=== PATIENT | male | born 1990 ===

== ENCOUNTER 2019-11-14 10:06 | Outpatient (CLI) | payer MEDICAID ==
[~2019-11-14] VITALS: Ht 170.2 cm; Wt 71.2 kg
[2019-11-14 10:34] VITALS: BP 117/69
[2019-11-14] MEDS ORDERED: DESCOVY PO (10:36)
--- NOTE | 2019-11-14 12:00 | Consultation ---
DATE OF CONSULTATION: 11/14/2019 CHIEF COMPLAINT: Diarrhea, abdominal pain, bloating. PAST MEDICAL HISTORY: Abdominal colonic. PAST SURGICAL HISTORY: None. MEDICATIONS: Descovy. FAMILY HISTORY: Father had gallstones. SOCIAL HISTORY: Drinks alcohol occasionally. Denies any tobacco usage. ALLERGIES: No known drug allergies. REVIEW OF SYSTEMS: Positive for abdominal pain, GERD, diarrhea, bloating . PHYSICAL EXAMINATION: VITAL SIGNS: Temperature 97.7, blood pressure 117/69, pulse 86, respirations 20. HEENT: Normocephalic and atraumatic. Sclerae anicteric. NECK: Supple. No evidence of obvious lymphadenopathy. CARDIOVASCULAR: Regular rate and rhythm. Plus S1, S2. LUNGS: Clear to auscultation bilaterally. ABDOMEN: Positive bowel sounds. Soft and nontender. No rebound. No guarding. No peritoneal sign. EXTREMITIES: No cyanosis. No clubbing. No edema. ASSESSMENT AND PLAN: This is a 29-year-old male with: 1. Gallstones. The patient has symptoms consistent with gallbladder and gallstone problems. The patient was recommended to see a surgeon. Apparently already had an appointment for that. 2. Abdominal pain, bloating, diarrhea, suspicious for SIBO. We are going to start the patient on Augmentin for 10 days followed by Align for two months. Return to clinic if no response. Ashok Paredes M.D. DR: Bonnie JOB#: [id number] CC:
== END 2019-11-14 12:06 | disposition home or self-care (01) ==
LOC: PAN 10:06
DX: R19.7 Diarrhea, unspecified (principal); R10.9 Unspecified abdominal pain; R14.0 Abdominal distension (gaseous); K21.9 Gastro-esophageal reflux disease without esophagitis; K80.80 Other cholelithiasis without obstruction
CPT/HCPCS: G0463